=== PATIENT | female | born 1950 | race Two or more races ===

== ENCOUNTER → 2018-02-11 | Outpatient (CLI) | payer MEDICARE, OTHER ==
--- NOTE | 2018-02-11 11:29 | Diagnostic Imaging Report ---
EXAMINATION: CHEST 2 VIEWS INDICATION: Chest pain COMPARISON: None FINDINGS: TUBES and LINES: None. LUNGS: Lungs are well inflated. Lungs are clear. There is no evidence of pneumonia or pulmonary edema. PLEURA: No pleural effusion or pneumothorax. HEART AND MEDIASTINUM: The cardiomediastinal silhouette is unremarkable. BONES AND SOFT TISSUES: No acute osseous lesion. Soft tissues are unremarkable. UPPER ABDOMEN: No free air under the diaphragm. IMPRESSION: No acute thoracic abnormality. Signed by: Dr. Niels Noland M.D. on 02/11/2018 11:26 AM
--- NOTE | 2018-02-11 11:29 | Diagnostic Imaging Report ---
Radiographs of the right and left shoulder - 2 views each shoulder HISTORY: Pain COMPARISON: None available. FINDINGS: Bones: No acute displaced fracture. Osseous alignment is within normal limits. Joints: Mild scattered degenerative change. No osseous erosion. Soft tissues: The soft tissues appear unremarkable. IMPRESSION: Mild scattered degenerative change. No osseous erosion. Signed by: Dr. Niels Noland M.D. on 02/11/2018 11:25 AM
--- NOTE | 2018-02-11 11:30 | Diagnostic Imaging Report ---
Radiographs of the thoracic spine - 3 views HISTORY: Pain COMPARISON: None available. FINDINGS: Bones: No acute displaced fracture. Osseous alignment is within normal limits. Joints: Scattered degenerative change. No osseous erosion. Soft tissues: The soft tissues appear unremarkable. IMPRESSION: Scattered degenerative change. No osseous erosion Signed by: Dr. Niels Noland M.D. on 02/11/2018 11:27 AM
--- NOTE | 2018-02-12 08:20 | Diagnostic Imaging Report ---
EXAM: DXA BONE DENSITY INDICATIONS: AGE RELATED OSTEOPORSIS COMPARISON: None. FINDINGS: Proximal left femur bone mineral density (BMD) (g/cm2):0.742 Femur T-score (standard deviation relative to young adult mean BMD): -1.6 Femur Z-score (standard deviation relative to age-matched control group):-0.3 Lumbar bone mineral density (BMD) (g/cm2):0.703 Lumbar T-score (standard deviation relative to young adult mean BMD): -3.1 Lumbar Z-score (standard deviation relative to age-matched control group):-1.2 Change since prior exam (%): Femur:Not applicable. Spine:Not applicable. Change since oldest prior exam (%): Femur:Not applicable. Spine:Not applicable. CONCLUSION: 1. Bone mineral density in the left femur is classified as osteopenia. Fracture risk is increased. 2. Bone mineral density in the spine is classified as osteoporosis. Fracture risk is high. World Health Organization Classification: *The Z-score is provided for informational purposes. The T-score is preferable for clinical decisions. When comparing exams, a change of >4% is considered statistically significant. SUGGESTED RECOMMENDATIONS: Normal & Osteopenia:Consideration should be given to use of calcium supplementation, daily multiple vitamins and adequate exercise, as preventive measures against osteoporosis, if clinically indicated. Osteoporosis & Severe Osteoporosis:In addition to the above, consideration should be given to medical therapy against osteoporosis, if clinically indicated. Evan Blair D.O. Dictated by: Evan Blair D.O. on 02/12/2018 at 8:30 Electronically approved by: Evan Blair D.O. on 02/12/2018 at 8:30
== END ==
LOC: RAD 09:58
PROVIDERS: ATTEND Family Medicine
DX: M81.0 Age-related osteoporosis without current pathological fracture (principal); R07.9 Chest pain, unspecified; M25.512 Pain in left shoulder; M25.511 Pain in right shoulder; M54.6 Pain in thoracic spine
CPT/HCPCS: 71046; 72070; 77080

== ENCOUNTER → 2019-07-28 | Outpatient (CLI) | payer MEDICARE, OTHER ==
--- NOTE | 2019-07-28 13:44 | Diagnostic Imaging Report ---
EXAM: Bone density study HISTORY: ^OSTEOPOROSIS FINDINGS: LEFT FEMORAL NECK: Bone mineral density measurement: 0.602 gm/cm2 Standard deviation from young adult population (T score): -2.2 Standard deviation for age adjusted population (Z score): 0.5 LUMBAR SPINE: Bone mineral density measurement: 0.788 gm/cm2 Standard deviation from young adult population (T score): -2.4 Standard deviation for age adjusted population (Z score): -0.4 IMPRESSION: Bone mineralization of the left femoral neck: Osteopenia. Bone mineralization of the lumbar spine: Osteopenia. DIAGNOSTIC CRITERIA: Normal: BMD measurement less than one standard deviation from young adult population Osteopenia: BMD measurement between one and 2.5 standard deviations corresponds to a 1 - 2x increased risk of an osteoporotic fracture of the lumbar spine as compared to the young adult population. Osteoporosis: BMD measurement greater than 2.5 standard deviations corresponds to a 2x increased risk of an osteoporotic fracture of the lumbar spine as compared to the young adult population. Severe osteoporosis: Osteoporosis and one or more fragility fractures Signed by: Ilan Srinivasan MD on 07/28/2019 1:41 PM
== END ==
LOC: DX 11:58
DX: M81.0 Age-related osteoporosis without current pathological fracture (principal)
CPT/HCPCS: 77080